=== PATIENT | male | born 1985 | race Caucasian/White ===

== ENCOUNTER 2016-07-21 02:33 | Emergency (ER) | payer OTHER ==
[~2016-07-21] VITALS: Ht 167.6 cm; Wt 86.2 kg
[2016-07-21 06:30] VITALS: BP 129/87
== END 2016-07-21 06:25 | disposition home or self-care (01) ==
LOC: ER 02:35
DX: T40.1X1A Poisoning by heroin, accidental (unintentional), initial encounter (principal); R79.89 Other specified abnormal findings of blood chemistry; Z88.0 Allergy status to penicillin; Y92.89 Other specified places as the place of occurrence of the external cause
CPT/HCPCS: 82962; 99283; A4606; Z7610